=== PATIENT | male | born 1975 | race Caucasian/White ===

== ENCOUNTER 2017-04-09 18:09 | Emergency (ER) | payer OTHER ==
[~2017-04-09] VITALS: Ht 167.6 cm; Wt 89.5 kg
[~2017-04-09 18:09] MED LIST: IBUP-1542 PO; ONDA4TAB8 PO
[2017-04-09 18:11] VITALS: Ht 167.6 cm; Wt 89.5 kg
[2017-04-09] MEDS ORDERED: morphine 4 MG/ML VIAL IV STA (19:43)
[2017-04-09] MEDS ORDERED: ONDANSETRON 4 MG INJ IV STA (19:43)
[2017-04-09 20:09] LABS: ABNORMAL IP MESSAGE 1; BASOPHIL # 0.1 10^3/ul (0.0-0.1); BASOPHILS % 0.6 % (0.0-2.0); EOSINOPHILS % 0.1 % (0.0-7.0); HEMATOCRIT 45.8 % (42.0-52.0); HEMOGLOBIN 16.4 g/dl (14.0-18.0); LYMPHOCYTES # 0.3 10^3/ul (0.8-2.9); LYMPHOCYTES % 3.8 % (15.0-51.0); MEAN CORPUSCULAR HEMOGLOBIN 32.7 pg (29.0-33.0); MEAN CORPUSCULAR HGB CONC 35.8 g/dl (32.0-37.0); MEAN CORPUSCULAR VOLUME 91.2 fl (82.0-101.0); MEAN PLATELET VOLUME 8.6 fl (7.4-10.4); MONOCYTE # 0.5 10^3/ul (0.3-0.9); MONOCYTES % 5.8 % (0.0-11.0); NEUTROPHILS % 89.3 % (39.0-77.0); PLATELET COUNT 281 10^3/UL (140-415); POSITIVE DIFF @See below; RED BLOOD COUNT 5.02 10^6/ul (4.70-6.10); RED CELL DISTRIBUTION WIDTH 11.9 % (11.5-14.5); WHITE BLOOD COUNT 7.8 10^3/ul (4.8-10.8)
[2017-04-09 20:31] LABS: ADD UMIC YES; UR AMORPHOUS CRYSTAL MANY /HPF (NONE SEEN); UR ASCORBIC ACID NEGATIVE (NEGATIVE); UR BILIRUBIN (Dip) NEGATIVE (NEGATIVE); UR BLOOD (Dip) NEGATIVE (NEGATIVE); UR CLARITY CLOUDY (CLEAR); UR COLOR YELLOW (YELLOW); UR GLUCOSE (Dip) NEGATIVE (NEGATIVE); UR KETONES (Dip) TRACE mg/dL (NEGATIVE); UR LEUKOCYTE ESTERASE (Dip) NEGATIVE Leu/ul (NEGATIVE); UR NITRITE (Dip) NEGATIVE (NEGATIVE); UR RBC 1 /HPF (0-5); UR SPECIFIC GRAVITY (Dip) 1.017 (1.003-1.030); UR TOTAL PROTEIN (Dip) 2+ mg/dl (NEGATIVE); UR UROBILINOGEN (Dip) 2+ mg/dL (NEGATIVE)
[2017-04-09 20:32] LABS: ALBUMIN 4.5 g/dl (3.3-4.9); ALBUMIN/GLOBULIN RATIO 1.4; BILIRUBIN,DIRECT 0.4 mg/dl (0.00-0.20); BILIRUBIN,INDIRECT 0.9 mg/dl (0-1.1); BILIRUBIN,TOTAL 1.3 mg/dl (0.2-1.3); CALCIUM 9.3 mg/dl (8.4-10.2); CREATININE 0.78 mg/dl (0.61-1.24); POTASSIUM 3.5 mmol/L (3.5-5.1); TOTAL PROTEIN 7.7 g/dl (6.1-8.1)
--- NOTE | 2017-04-09 20:54 | RADRPT ---
PROCEDURE: Right upper quadrant ultrasound CLINICAL INDICATION: Abdominal pain TECHNIQUE: Multiple real-time images were acquired of the patient's abdomen and right retroperiton eum utilizing a high resolution transducer. COMPARISON: 06/10/2016 FINDINGS: The liver is normal in echogenicity and measures 16.4 cm. No focal hepatic masses are seen. The ga llbladder is physiologically distended. There are calcified gallstones. There is no gallbladder wal l thickening or pericholecystic fluid. The intra and extrahepatic bile ducts are normal in caliber. The common bile duct measures 5.7 mm. Pancreas is not visualized due to overlying bowel gas Survey views of the right kidney demonstrate no evidence of hydronephrosis or renal calculi. The ri ght kidney measures 10.9 cm. IMPRESSION: 1. Cholelithiasis. There is no gallbladder wall thickening or pericholecystic fluid to suggest acut e cholecystitis. 2. No biliary duct dilatation. 3. Pancreas not visualized RPTAT: HH .Nick Sifuentes MD, MD Date Time Electronically viewed and signed by .Nick Sifuentes MD, on 04/09/2017 20:54 .W/
[2017-04-09] MEDS ORDERED: HYDR-906 PO (21:09)
[2017-04-09] MEDS ORDERED: ONDA8TAB14 PO (21:09)
--- NOTE | 2017-04-09 21:12 | ERD ---
ER Documentation Chief Complaint Date/Time DATE: 04/09/17 TIME: 21:11 Chief Complaint Complains of abdominal pain HPI This 5-year-old male claims right upper quadrant abdominal pain for last day. He is a remote history of gallstones but no definitive treatment. Denies fevers , vomiting although he has nausea. Denies any diarrhea, urinary complaints, lower abdominal pain. Denies significant alcohol intake. ROS All systems reviewed and are negative except as per history of present illness. Medications Home Meds Active Scripts Ondansetron (Ondansetron Odt) 8 Mg Tab.rapdis, 8 MG PO Q6H Y for NAUSEA AND/OR VOMITING, #6 TAB Prov:VICENTA MCMILLAN MD 04/09/17 Hydrocodone/Acetaminophen ([place] 5-325 Tablet) 1 Each Tablet, 1 TAB PO Q6H Y for PAIN, #14 TAB Prov:VICENTA MCMILLAN MD 04/09/17 Ondansetron Hcl* (Zofran*) 4 Mg Tablet, 4 MG PO Q6H for NAUSEA AND/OR VOMITING, #30 TAB Prov:FELIPE GAVIRIA PA-C 06/10/16 Ibuprofen* (Motrin*) 600 Mg Tab, 600 MG PO Q6, #30 TAB Prov:FELIPE GAVIRIA PA-C 06/10/16 Allergies Allergies: Coded Allergies: No Known Allergy (Unverified , 10/03/11) PMhx/Soc History of Surgery: Yes (neck surgery 20 years ago) Anesthesia Reaction: No Hx Neurological Disorder: No Hx Respiratory Disorders: No Hx Cardiac Disorders: No Hx Psychiatric Problems: No Hx Miscellaneous Medical Probl: No (gallstones) Hx Alcohol Use: Yes (OCCASIONALLY) Hx Substance Use: No Hx Tobacco Use: No Smoking Status: Never smoker Physical Exam Vitals Vital Signs Date Time Temp Pulse Resp B/P Pulse Ox O2 Delivery O2 Flow Rate FiO2 04/09/17 18:11 98.4 84 20 129/76 98 Physical Exam Const: [] Alert, uncomfortable but no apparent distress per Head: Atraumatic Eyes: Normal Conjunctiva ENT: Normal External Ears, Nose and Mouth. Neck: Full range of motion..~ No meningismus. Resp: Clear to auscultation bilaterally Cardio: Regular rate and rhythm, no murmurs Abd: Soft, the right upper quadrant positive Kraft sign without rebound. No tenderness at McBurney's point., non distended. Normal bowel sounds Skin: No petechiae or rashes Back: No midline or flank tenderness Ext: No cyanosis, or edema Neur: Awake and alert Psych: Normal Mood and Affect Result Diagram: 04/09/17194404/09/171944 Results 24 hrs Laboratory Tests Test 04/09/17 19:30 04/09/17 19:45 Urine Color YELLOW Urine Clarity CLOUDY Urine pH 9.0 Urine Specific Hamer 1.017 Urine Ketones TRACEmg/dL Urine Nitrite NEGATIVEmg/dL Urine Bilirubin NEGATIVEmg/dL Urine Urobilinogen 2+mg/dL Urine Leukocyte Esterase NEGATIVELeu/ul Urine Microscopic RBC 1/HPF Urine Microscopic WBC 4/HPF Urine Amorphous Crystals MANY/HPF Urine Hemoglobin NEGATIVEmg/dL Urine Glucose NEGATIVEmg/dL Urine Total Protein 2+mg/dl White Blood Count 7.810^3/ul Red Blood Count 5.0210^6/ul Hemoglobin 16.4g/dl Hematocrit 45.8% Mean Corpuscular Volume 91.2fl Mean Corpuscular Hemoglobin 32.7pg Mean Corpuscular Hemoglobin Concent 35.8g/dl Red Cell Distribution Width 11.9% Platelet Count 95908^3/UL Mean Platelet Volume 8.6fl Neutrophils % 89.3% Lymphocytes % 3.8% Monocytes % 5.8% Eosinophils % 0.1% Basophils % 0.6% Nucleated Red Blood Cells % 0.0/100WBC Neutrophils # 7.010^3/ul Lymphocytes # 0.310^3/ul Monocytes # 0.510^3/ul Eosinophils # 0.010^3/ul Basophils # 0.110^3/ul Nucleated Red Blood Cells # 0.010^3/ul Sodium Level 141mmol/L Potassium Level 3.5mmol/L Chloride Level 101mmol/L Carbon Dioxide Level 28mmol/L Anion Gap 16 Blood Urea Nitrogen 14mg/dl Creatinine 0.78mg/dl Glucose Level 130mg/dl Calcium Level 9.3mg/dl Total Bilirubin 1.3mg/dl Direct Bilirubin 0.40mg/dl Indirect Bilirubin 0.9mg/dl Aspartate Amino Transf (AST/SGOT) 416IU/L Alanine Aminotransferase (ALT/SGPT) 277IU/L Alkaline Phosphatase 101IU/L Total Protein 7.7g/dl Albumin 4.5g/dl Globulin 3.20g/dl Albumin/Globulin Ratio 1.40 Lipase 229U/L Current Medications Medications (Trade) Dose Ordered Sig/Maksim Route PRN Reason Start Time Stop Time Status Last Admin Dose Admin Morphine Sulfate (morphine) 4 mg ONCE STAT IV 04/09/17 19:43 04/09/17 19:45 DC 04/09/17 20:05 Ondansetron HCl (Zofran Inj) 4 mg ONCE STAT IV 04/09/17 19:43 04/09/17 19:45 DC 04/09/17 20:05 Procedures/MDM CBC is normal. CMP shows transaminitis without elevated bilirubins. Lipase is normal. Urine shows no signs of infection. Patient was given morphine 4 mg IV and Zofran form of grams IV. Right upper quadrant ultrasound shows gallstones without evidence of obstruction or cholecystitis. Patient felt better after observation and treatment. Patient presents with biliary colic without signs of cholecystitis, biliary obstruction, signs of acute appendicitis, acute abdomen, sepsis or additional emergent causes of presenting complaints. We treated with a short course of [place], Zofran and general surgery recommended follow-up and return precautions. The patient was stable with no new complaints during the ER course. Clinically, there is no current evidence to suggest meningitis, sepsis, acute abdomen, pneumonia, acute coronary syndrome, pulmonary embolism, or any other emergent condition appearing to require further evaluation or hospitalization. The patient should certainly return for any new or worsening symptoms per the aftercare instructions. They should otherwise follow-up with her primary care doctor for reevaluation this week. Disclaimer: Inadvertent spelling and grammatical errors are likely due to EHR/ dictation software use and do not reflect on the overall quality of patient care. Also, please note that the electronic time recorded on this note does not necessarily reflect the actual time of the patient encounter. Departure Diagnosis: Primary Impression: Gallstones Additional Impression: Abdominal pain Abdominal location: right upper quadrant Qualified Code: R10.11 - Right upper quadrant abdominal pain Condition: Stable Patient Instructions: Abdominal Pain, Gallstones Referrals: MANN STRINGER M.D., THOMAS MD Additional Instructions: Va al mccormick doctor/ specialista para mas evaluacon en el proximo semana. posiblemente necesita autorizado de mccormick doctor primario para specialista. Regresa para fiebre, o mas o nueva simptomas. VICENTA MCMILLAN MD Apr 09, 2017 21:12
[2017-04-09 21:38] VITALS: BP 112/70; PULSE 63; RESP 16
== END 2017-04-09 21:39 | disposition home or self-care (01) ==
LOC: FTE 18:09
DX: K80.20 Calculus of gallbladder without cholecystitis without obstruction (principal)
CPT/HCPCS: 36415; 76705; 80053; 81001; 83690; 85025; 96374; 96375; J2270; J2405; Z7502

== ENCOUNTER 2018-11-04 05:50 | Emergency (ER) | payer OTHER ==
[~2018-11-04] VITALS: Ht 172.7 cm; Wt 93.1 kg
[~2018-11-04 05:50] MED LIST changes: +HYDR-4011 PO; +ONDA8TAB14 PO
[2018-11-04 06:00] VITALS: Ht 172.7 cm; Wt 93.1 kg
[2018-11-04] MEDS ORDERED: ONDANSETRON 4 MG INJ IV STA ×3 (06:10→08:21)
[2018-11-04] MEDS ORDERED: morphine 4 MG/ML VIAL IV STA (06:10)
[2018-11-04] MEDS ORDERED: SOD CHLORIDE 0.9% 1,000 ML IV STA (06:10)
--- NOTE | 2018-11-04 06:24 | ERD ---
ER Documentation Chief Complaint Chief Complaint abd pain this morning. +nausea HPI This is a 43-year-old male that presents to the emergency department complaining of severe abdominal pain that was sudden in onset, 10 out of 10 in intensity and occurred roughly 3 hours prior to arrival. The patient has felt nauseous but has not experienced any emesis. He had no fevers or shaking or chills. He states the pain is present in the epigastric region and radiates to the right upper quadrant and to the tip of his right scapula. Indicates he has had similar pain in the past as he has a history of cholelithiasis but has not undergone any surgical intervention. He denies any chest pain or pressure. He has no shortness of breath. He states the pain does not radiate to the lower abdomen. Signal frequency urgency or dysuria. ROS All systems reviewed and are negative except as per history of present illness. Medications Home Meds Active Scripts Ondansetron (Ondansetron Odt) 8 Mg Tab.rapdis, 8 MG PO Q6H PRN for NAUSEA AND/OR VOMITING, #6 TAB Prov:VICENTA MCMILLAN MD 04/09/17 Hydrocodone/Acetaminophen ([place] 5-325 Tablet) 1 Each Tablet, 1 TAB PO Q6H PRN for PAIN, #14 TAB Prov:VICENTA MCMILLAN MD 04/09/17 Ondansetron Hcl* (Zofran*) 4 Mg Tablet, 4 MG PO Q6H for NAUSEA AND/OR VOMITING, #30 TAB Prov:FELIPE GAVIRIA PA-C 06/10/16 Ibuprofen* (Motrin*) 600 Mg Tab, 600 MG PO Q6, #30 TAB Prov:FELIPE GAVIRIA PA-C 06/10/16 Allergies Allergies: Coded Allergies: No Known Allergy (Unverified , 11/04/18) PMhx/Soc History of Surgery: Yes (neck surgery 20 years ago) Anesthesia Reaction: No Hx Neurological Disorder: No Hx Respiratory Disorders: No Hx Cardiac Disorders: No Hx Psychiatric Problems: No Hx Miscellaneous Medical Probl: No (gallstones) Hx Alcohol Use: Yes (OCCASIONALLY) Hx Substance Use: No Hx Tobacco Use: No Physical Exam Vitals Vital Signs Date Temp Pulse Resp B/P (MAP) Pulse Ox O2 O2 Flow FiO2 Time Delivery Rate 11/04/18 70 16 121/79 98 Room Air 06:23 (93) 11/04/18 97.3 69 22 122/75 98 06:00 (91) Physical Exam Constitutional:Well-developed. Well-nourished. HEENT:Normocephalic. Atraumatic.Pupils were equal round reactive to light. Moist mucous membranes.No tonsillar exudates. Neck: No nuchal rigidity. No lymphadenopathy. No posterior cervical spine tenderness or step-offs. Respiratory: Not using accessory muscles of respiration.Lungs were clear to auscultation bilaterally. No rhonchi. No rales. No wheezing. Cardiovascular: Regular rate regular rhythm.No murmurs. No rubs were appreciated.S1, S2 normal. Distal pulses are palpable 2+ bilaterally. GI: Abdomen was soft. Right upper quadrant tenderness with negative Kraft s ign. No tenderness the right lower quadrant over McBurney's point. Psoas sign negative. Obturator sign negative.. Non Distended. No pulsatile abdominal masses or bruits. No rebound. No guarding. Bowel sounds were present and normal. Muscle skeletal: Full range of motion of both the upper and lower extremities bilaterally.Normal muscle tone.No assymetrical calf tenderness or swelling. Skin: No petechia, no purpura. No lesions on the palms or the soles of the feet. No maculopapular rash. NEURO: Patient was alert, awake, orientated x3.No facial droop. Gait observed and normal with no ataxia.Speech had regular rate and rhythm. No focal neurological deficits. Result Diagram: 11/04/1819 11/04/1819 Results 24 hrs Laboratory Tests Test 11/04/18 06:19 White Blood Count 13.6 10^3/ul Red Blood Count 5.21 10^6/ul Hemoglobin 16.6 g/dl Hematocrit 48.4 % Mean Corpuscular Volume 92.9 fl Mean Corpuscular Hemoglobin 31.9 pg Mean Corpuscular Hemoglobin Concent 34.3 g/dl Red Cell Distribution Width 12.3 % Platelet Count 336 10^3/UL Mean Platelet Volume 8.8 fl Immature Granulocytes % 0.600 % Neutrophils % 84.3 % Lymphocytes % 6.9 % Monocytes % 7.0 % Eosinophils % 0.5 % Basophils % 0.7 % Nucleated Red Blood Cells % 0.0 /100WBC Immature Granulocytes # 0.080 10^3/ul Neutrophils # 11.5 10^3/ul Lymphocytes # 0.9 10^3/ul Monocytes # 1.0 10^3/ul Eosinophils # 0.1 10^3/ul Basophils # 0.1 10^3/ul Nucleated Red Blood Cells # 0.0 10^3/ul Prothrombin Time 12.7 Sec Prothrombin Time Ratio 1.0 INR International Normalized Ratio 0.94 Activated Partial Thromboplast Time 22.9 Sec Sodium Level 142 mmol/L Potassium Level 4.0 mmol/L Chloride Level 101 mmol/L Carbon Dioxide Level 29 mmol/L Anion Gap 12 Blood Urea Nitrogen 14 mg/dl Creatinine 0.76 mg/dl Est Glomerular Filtrat Rate mL/min > 60 mL/min Glucose Level 131 mg/dl Calcium Level 9.5 mg/dl Total Bilirubin 0.5 mg/dl Direct Bilirubin 0.00 mg/dl Indirect Bilirubin 0.5 mg/dl Aspartate Amino Transf (AST/SGOT) 117 IU/L Alanine Aminotransferase (ALT/SGPT) 76 IU/L Alkaline Phosphatase 67 IU/L Troponin I < 0.012 ng/ml Total Protein 7.5 g/dl Albumin 4.5 g/dl Globulin 3.00 g/dl Albumin/Globulin Ratio 1.50 Amylase Level 93 U/L Lipase 188 U/L Current Medications Medications Dose Sig/Maksim Start Time Status Last (Trade) Ordered Route PRN Stop Time Admin Dose Reason Admin Sodium 1,000 ml @ Q1H STAT 11/04/18 DC 11/04/18 Chloride 1,000 mls/hr IV 06:10 06:17 11/04/18 07:09 Morphine 4 mg ONCE STAT 11/04/18 DC 11/04/18 Sulfate IV 06:10 06:17 (morphine) 11/04/18 06:11 Ondansetron 4 mg ONCE STAT 11/04/18 DC 11/04/18 HCl (Zofran IV 06:10 06:16 Inj) 11/04/18 06:11 1 mg ONCE STAT 11/04/18 DC Hydromorphone IV 07:20 HCl 11/04/18 07:21 (Dilaudid) Ondansetron 4 mg ONCE STAT 11/04/18 DC HCl (Zofran IV 07:20 Inj) 11/04/18 07:21 Ketorolac 30 mg ONCE STAT 11/04/18 DC Tromethamine IV 07:37 (Toradol) 11/04/18 07:39 Procedures/MDM The patient presented to the emergency department with epigastric pain. My differential diagnosis included but was not limited to abdominal aortic aneurysm, choledocholithiasis, gallstone ileus, renal colic, pyelonephritis, pancreatitis, peptic ulcer disease, atypical myocardical infarction, mesenteric ischemia, GERD, pulmonary infarction. The patient was placed on a media monitor, continuous pulse oximetry and IV access was established by nursing staff. An EKG was obtained to rule out myocardial ischemia. There was no elevation of LFTs to suggest ductal obstruction, cholangitis, cholecystiitis or hepatitis. Given that the urinalysis did not show bilirubinuria, my suspicion for common duct obstruction or hepatitis was low. 12 Lead EKG tracing ordered and reviewed by myself showed: Normal sinus rhythm of 70 bpm and no arrhythmia. SD interval normal. QRS duration normal. No ST segment elevation No ST segment depression. No changes consistent with acute ischemia. I reviewed the patient's previous medical records and have been seen in 2017 roughly 2 years prior to arrival for similar pain and diagnosed with cholelithiasis. The patient had an MRCP performed in 2011 and [facility] that indicated the patient had a common bile duct that was dilated with no obvious choledocholithiasis or intrahepatic biliary dilatation on that particular examination. The ultrasound of the gallbladder today that was reviewed by the radiologist and myself indicated the followin. Layering sludge and multiple stones within the gallbladder. No wall thickening or pericholecystic fluid to indicate acute inflammation. 2. Non-visualized pancreas. The patient had mild leukocytosis with white blood cell count of 13.6. Patient had mild transaminitis. Alkaline phosphatase was normal. The patient had no physical exam findings to suggest symptomatic cholecystitis. He was now able to tolerate oral intake and pain had improved after receiving a further dose of opiate analgesic medication. The patient felt comfortable being discharged home. He was instructed to follow-up on an outpatient basis with his primary care physician and referral to a surgeon for definitive treatment with cholecystectomy. The patient was discharged home in fair condition. They were instructed to return to the emergency department at any time if there was any worsening of their condition. The patient stated they would follow up with their PCP in the next 24-48 hours to initiate a suitable medication regimen under the care of their PCP as well as to allow their PCP to monitor any drug reactions. The patient was discharged home with prescriptions after they gave informed consent to the new medication. They were also fully informed by myself on the adverse effects and adverse drug interactions in order to provide adequate safeguards to prevent possible adverse reactions to medications. Departure Diagnosis: Primary Impression: Cholelithiasis Cholelithiasis location: gallbladder Cholecystitis presence: without cholecystitis Biliary obstruction: without biliary obstruction Qualified Codes: K80.20 - Calculus of gallbladder without cholecystitis without obstruction Condition: MELISA Fuentes MD Nov 04, 2018 06:24
[2018-11-04] MEDS ORDERED: HYDROmorphONE 1 MG/ML SYG IV STA ×2 (07:20→08:21)
[2018-11-04] MEDS ORDERED: KETOROLAC 30 MG INJ IV STA (07:37)
[2018-11-04] MEDS ORDERED: HYDR-4011 PO (08:05)
[2018-11-04] MEDS ORDERED: IBUP800T48 PO (08:05)
[2018-11-04 09:50] VITALS: BP 128/83; PULSE 79; RESP 17
== END 2018-11-04 09:50 | disposition home or self-care (01) ==
LOC: E/R 05:50
DX: K80.20 Calculus of gallbladder without cholecystitis without obstruction (principal)
CPT/HCPCS: 36415; 76705; 80053; 82150; 83690; 84484; 85025; 85610; 85730; 93005; 96374; 96375; 96376; J1170; J1885; J2270; J2405; J7030; Z7502

== ENCOUNTER 2019-01-20 18:13 | Emergency (ER) | payer OTHER ==
[~2019-01-20] VITALS: Ht 172.7 cm; Wt 65.0 kg
[~2019-01-20 18:13] MED LIST changes: +IBUP800T48 PO
[2019-01-20 18:18] VITALS: Ht 172.7 cm; Wt 65.0 kg
[2019-01-20] MEDS ORDERED: ONDANSETRON 4 MG INJ IV STA (19:11)
[2019-01-20] MEDS ORDERED: morphine 10 MG INJ IV ONE (19:30)
--- NOTE | 2019-01-20 20:06 | ERD ---
ER Documentation Chief Complaint Chief Complaint bib self, cc: abd pain x 2 days, generalized HPI 43-year-old male with a history of cholelithiasis presenting with epigastric pain that started about 2 hours ago. He has associated nausea and vomiting. The pain is aching, nonradiating, with no alleviating or exacerbating factors. Pain is a 9 out of 10. He has had pain like this before from his gallstones. He took ibuprofen prior to arrival without improvement of his symptoms. He is scheduled for surgery with Dr. Obrien next week. No fevers or chills. No diarrhea. ROS All systems reviewed and are negative except as per history of present illness. Medications Home Meds Active Scripts Hydrocodone/Acetaminophen ([place] 5-325 Tablet) 1 Each Tablet, 1 TAB PO Q6H PRN f or PAIN, #20 TAB Prov:MELISA MAJANO MD 11/04/18 Ibuprofen* (Motrin*) 800 Mg Tab, 800 MG PO Q6H PRN for PAIN AND OR ELEVATED TEMP, #30 TAB Prov:MELISA MAJANO MD 11/04/18 Ondansetron (Ondansetron Odt) 8 Mg Tab.rapdis, 8 MG PO Q6H PRN for NAUSEA AND/OR VOMITING, #6 TAB Prov:VICENTA MCMILLAN MD 04/09/17 Hydrocodone/Acetaminophen ([place] 5-325 Tablet) 1 Each Tablet, 1 TAB PO Q6H PRN for PAIN, #14 TAB Prov:VICENTA MCMILLAN MD 04/09/17 Ondansetron Hcl* (Zofran*) 4 Mg Tablet, 4 MG PO Q6H for NAUSEA AND/OR VOMITING, #30 TAB Prov:FELIPE GAVIRIA PA-C 06/10/16 Ibuprofen* (Motrin*) 600 Mg Tab, 600 MG PO Q6, #30 TAB Prov:FELIPE GAVIRIA PA-C 06/10/16 Allergies Allergies: Coded Allergies: No Known Allergy (Unverified , 11/04/18) PMhx/Soc Medical and Surgical Hx: pt denies Surgical Hx History of Surgery: Yes (neck surgery 20 years ago) Anesthesia Reaction: No Hx Neurological Disorder: No Hx Respiratory Disorders: No Hx Cardiac Disorders: No Hx Psychiatric Problems: No Hx Miscellaneous Medical Probl: Yes (gallstone) Hx Alcohol Use: No Hx Substance Use: No Hx Tobacco Use: No Smoking Status: Never smoker FmHx Family History: No diabetes Physical Exam Vitals Vital Signs Date Temp Pulse Resp B/P (MAP) Pulse Ox O2 O2 Flow FiO2 Time Delivery Rate 01/20/19 65 16 137/91 97 Room Air 18:36 (106) 01/20/19 98.6 82 19 126/65 100 18:18 (85) Physical Exam Const: No acute distress Head: Atraumatic Eyes: Normal Conjunctiva, no scleral icterus ENT: Normal External Ears, Nose and Mouth. Neck: Full range of motion. No meningismus. Resp: Clear to auscultation bilaterally Cardio: Regular rate and rhythm, no murmurs Abd: Soft, mild epigastric tenderness with no rebound or guarding. Negative Kraft sign. No masses. non distended. Normal bowel sounds Skin: No petechiae or rashes Back: No midline or flank tenderness Ext: No cyanosis, or edema Neur: Awake and alert Psych: Normal Mood and Affect Result Diagram: 01/20/196 01/20/19 1836 Results 24 hrs Laboratory Tests Test 01/20/19 18:36 White Blood Count 7.3 10^3/ul Red Blood Count 5.15 10^6/ul Hemoglobin 16.2 g/dl Hematocrit 47.0 % Mean Corpuscular Volume 91.3 fl Mean Corpuscular Hemoglobin 31.5 pg Mean Corpuscular Hemoglobin Concent 34.5 g/dl Red Cell Distribution Width 11.7 % Platelet Count 302 10^3/UL Mean Platelet Volume 8.7 fl Immature Granulocytes % 0.300 % Neutrophils % 56.7 % Lymphocytes % 26.8 % Monocytes % 9.7 % Eosinophils % 5.3 % Basophils % 1.2 % Nucleated Red Blood Cells % 0.0 /100WBC Immature Granulocytes # 0.020 10^3/ul Neutrophils # 4.1 10^3/ul Lymphocytes # 2.0 10^3/ul Monocytes # 0.7 10^3/ul Eosinophils # 0.4 10^3/ul Basophils # 0.1 10^3/ul Nucleated Red Blood Cells # 0.0 10^3/ul Sodium Level 143 mmol/L Potassium Level 3.4 mmol/L Chloride Level 101 mmol/L Carbon Dioxide Level 30 mmol/L Anion Gap 12 Blood Urea Nitrogen 14 mg/dl Creatinine 0.84 mg/dl Est Glomerular Filtrat Rate mL/min > 60 mL/min Glucose Level 105 mg/dl Calcium Level 9.5 mg/dl Total Bilirubin 0.4 mg/dl Direct Bilirubin 0.00 mg/dl Indirect Bilirubin 0.4 mg/dl Aspartate Amino Transf (AST/SGOT) 40 IU/L Alanine Aminotransferase (ALT/SGPT) 47 IU/L Alkaline Phosphatase 61 IU/L Total Protein 7.6 g/dl Albumin 4.5 g/dl Globulin 3.10 g/dl Albumin/Globulin Ratio 1.45 Lipase 208 U/L Current Medications Medications Dose Sig/Maksim Start Time Status Last (Trade) Ordered Route PRN Stop Time Admin Dose Reason Admin Morphine 6 mg ONCE ONCE 01/20/19 DC 01/20/19 Sulfate IV 19:30 01/20/19 19:46 (morphine) 19:31 Ondansetron 4 mg ONCE STAT 01/20/19 DC 01/20/19 HCl (Zofran IV 19:11 01/20/19 19:46 Inj) 19:12 Procedures/MDM EMERGENT LABS AND DIAGNOSTIC STUDIES: Lab Results above were reviewed and interpreted by me. CBC: no anemia or evidence of infection CMP: No evidence of clinically significant electrolyte abnormality, acidosis, re nal failure, hypoglycemia, liver disease, or biliary obstruction Lipase: no evidence of pancreatitis Radiology Results as interpreted by Radiology below were reviewed by Sharan Guevara MD: Ultrasound right upper quadrant shows gallstones without evidence of cholecystitis or biliary dilatation Initial Nursing notes reviewed. Previous Medical Records requested via the Electronic Health Record. EMERGENCY DEPARTMENT COURSE / MEDICAL DECISION MAKING: Differential includes but is not limited to biliary colic, biliary obstruction, acute cholecystitis, pancreatitis, hepatitis, lower lobe pneumonia, gastritis, colitis, cardiac pathology, aortic dissection, ureterolithiasis, pyelonephritis. Labs were ordered to evaluate for above and were normal. Ultrasound of the a bdomen ordered to evaluate gallbladder and showed no acute pathology. Patient's pain is well controlled after medications. He is feeling much better and is able to tolerate fluids by mouth. I feel patient is stable for discharge with continued outpatient follow-up for his surgery. Return precautions discussed. Prescription for [place] given. Patient's blood pressure was elevated (>120/80) but appears stable without evidence of hypertensive emergency or urgency. The patient was counseled about the risks of hypertension and urged to pursue outpatient monitoring and therapy within a week with their primary care physician. Departure Diagnosis: Primary Impression: Abdominal pain Abdominal location: epigastric Qualified Codes: R10.13 - Epigastric pain Condition: Fair WILLIAM GUEVARA MD Jan 20, 2019 20:06
[2019-01-20] MEDS ORDERED: HYDR-4011 PO (20:07)
[2019-01-20 20:27] VITALS: BP 112/70; PULSE 72; RESP 16
== END 2019-01-20 20:28 | disposition home or self-care (01) ==
LOC: E/R 18:13
DX: R10.13 Epigastric pain (principal); R40.2142 Coma scale, eyes open, spontaneous, at arrival to emergency department; R40.2252 Coma scale, best verbal response, oriented, at arrival to emergency department; R40.2362 Coma scale, best motor response, obeys commands, at arrival to emergency department
CPT/HCPCS: 76705; 80053; 83690; 85025; J2270; J2405; 36415; 96374; 96375